=== PATIENT | male | born 1960 | race Caucasian/White ===

== ENCOUNTER 2017-04-30 11:58 | Outpatient (CLI) | payer OTHER ==
--- NOTE | 2017-04-30 14:10 | Ultrasound Report ---
LIMITED PELVIC ULTRASOUND: 04/30/2017 CLINICAL INDICATION: Palpable abnormality left inguinal region. TECHNIQUE: Real-time scanning was performed with workforce services representative static images obtained. FINDINGS: Ultrasound of the palpable abnormality identified by the patient was performed. At this site, subcutaneous edema is noted. No drainable fluid collection or solid mass is seen. There are normal sized inguinal nodes in the region, which do not correlate with the palpable abnormality. IMPRESSION: SUBCUTANEOUS EDEMA IN THE REGION OF THE PALPABLE ABNORMALITY, WITHOUT EVIDENCE OF A DRAINABLE ABSCESS. TD: 04/30/2017 14:08
== END 2017-04-30 11:59 | disposition home or self-care (01) ==
LOC: DI 11:58
PROVIDERS: ATTEND Specialist
DX: R60.0 Localized edema (principal)
CPT/HCPCS: 76857

== ENCOUNTER 2017-05-08 13:03 | Outpatient (CLI) | payer OTHER ==
[2017-05-08 13:28] LABS: CALCIUM 9.7 mg/dL (8.5-10.3); CREATININE 0.9 mg/dL (0.6-1.2)
== END 2017-05-08 13:04 | disposition home or self-care (01) ==
LOC: LAB 13:03
PROVIDERS: ATTEND Family Medicine
DX: R59.0 Localized enlarged lymph nodes (principal)
CPT/HCPCS: 36415; 80048

== ENCOUNTER 2017-05-08 14:58 | Outpatient (CLI) | payer OTHER ==
[2017-05-08] MEDS ORDERED: IOPAMIDOL-300 100 ML VIAL ONE (15:48)
[2017-05-08] MEDS ORDERED: IOPAMIDOL-300 100 ML VIAL IVP ONE (17:04)
--- NOTE | 2017-05-08 20:20 | CT Report ---
EXAM: CT PELVIS EXAM DATE: 05/08/2017 04:05 PM. CLINICAL HISTORY: Left inguinal swelling. COMPARISONS: None. TECHNIQUE: Routine helical CT imaging was performed through the pelvis. IV contrast: ISOVUE 300 100m L. Enteric contrast: No. Reconstructions: Coronal and sagittal. In accordance with CT protocol optimization, one or more of the following dose reduction techniques w ere utilized for this exam: automated exposure control, adjustment of mA and/or KV based on patient s ize, or use of iterative reconstructive technique. FINDINGS: Visualized Abdominal Organs: Normal. Peritoneal Cavity/Bowel: Normal. No free fluid, free air or adenopathy. No masses or acute inflammato ry process. The appendix is well visualized and normal. Pelvic Organs: Normal. The bladder, rectum, and visualized pelvic organs are within normal limits. Vasculature: No aneurysms or other significant abnormality. Bones: No significant abnormality. Other: No inguinal lymphadenopathy, fluid collection, or mass. There may be subtle skin thickening on the left compared to the right as demonstrated on axial image 42. IMPRESSION: Subtle skin thickening on the left. Otherwise negative study. [facility] Referring Provider Line: [phone] SITE ID: [id number]
== END 2017-05-08 14:59 | disposition home or self-care (01) ==
LOC: DI 14:58
PROVIDERS: ATTEND Family Medicine
DX: R19.04 Left lower quadrant abdominal swelling, mass and lump (principal); R59.0 Localized enlarged lymph nodes
CPT/HCPCS: 36415; 72193; 80048; Q9967

== ENCOUNTER 2020-05-11 15:50 | Outpatient (CLI) | payer OTHER ==
--- NOTE | 2020-05-11 17:30 | XRAY Report ---
PROCEDURE: Chest 2 View X-Ray INDICATIONS: PRURITUS TECHNIQUE: 2 view(s) of the chest. COMPARISON: None FINDINGS: Surgical changes and devices: None. Lungs and pleura: No pleural effusions or pneumothorax. Lungs are clear. Mediastinum: Mediastinal contours are normal. Heart size is normal. Bones and chest wall: No suspicious bony abnormalities. Soft tissues appear unremarkable. IMPRESSION: No acute cardiopulmonary disease. Reviewed by: BERKLEY Thurman on 05/11/2020 5:29 PM PST Approved by: Licha Theodore MD on 05/11/2020 5:29 PM PST Station ID: [id number]
== END 2020-05-11 15:51 | disposition home or self-care (01) ==
LOC: DI 15:50
PROVIDERS: ATTEND Physician Assistant
DX: L29.8 Other pruritus (principal); D48.5 Neoplasm of uncertain behavior of skin; S60.042A Contusion of left ring finger without damage to nail, initial encounter
CPT/HCPCS: 36415; 80048; 80076; 82652; 84439; 84443; 84630; 85025; 86038

== ENCOUNTER 2020-05-11 16:01 | Outpatient (CLI) | payer OTHER ==
[2020-05-11 16:37] LABS: BASOPHILS % (AUTO) 0.4 %; EOSINOPHILS # (AUTO) 0.3 10^3/uL (0.0-0.7); EOSINOPHILS % (AUTO) 3.1 %; HCT - HEMATOCRIT 41.8 % (42.0-52.0); HGB - HEMOGLOBIN 14.3 g/dL (14.0-18.0); LYMPHOCYTES # (AUTO) 1.7 10^3/uL (1.5-3.5); LYMPHOCYTES % (AUTO) 16.6 %; MEAN CORPUSCULAR HEMOGLOBIN 30.4 pg (27.0-31.0); MEAN CORPUSCULAR HGB CONC 34.2 g/dL (32.0-36.0); MEAN CORPUSCULAR VOLUME 88.9 fL (80.0-94.0); MEAN PLATELET VOLUME 9.9 fL (7.4-11.4); MONOCYTES # (AUTO) 0.6 10^3/uL (0.0-1.0); MONOCYTES % (AUTO) 5.5 %; NEUTROPHILS # (AUTO) 7.4 10^3/uL (1.5-6.6); PLT - PLATELET COUNT 266 10^3/uL (130-450); RED CELL DISTRIBUTION WIDTH 11.7 % (12.0-15.0)
[2020-05-11 16:55] LABS: ALBUMIN 4.8 g/dL (3.2-5.5); BILIRUBIN,DIRECT 0.1 mg/dL (0.1-0.5); BILIRUBIN,TOTAL 0.4 mg/dL (0.2-1.0); CALCIUM 9.2 mg/dL (8.5-10.3); POTASSIUM 3.6 mmol/L (3.5-5.0); TOTAL PROTEIN 7.7 g/dL (6.7-8.2)
[2020-05-11 17:10] LABS: THYROID STIMULATING HORMONE 1.58 uIU/mL (0.34-5.60)
[2020-05-11 17:13] LABS: FREE T4 (FREE THYROXINE) 0.93 ng/dL (0.58-1.64)
[2020-05-13 10:32] LABS: ANA SCREEN NEGATIVE (NEGATIVE)
== END 2020-05-11 16:02 | disposition home or self-care (01) ==
LOC: LAB 16:01
PROVIDERS: ATTEND Physician Assistant
DX: D48.5 Neoplasm of uncertain behavior of skin (principal); L29.8 Other pruritus; S60.042A Contusion of left ring finger without damage to nail, initial encounter
CPT/HCPCS: 36415; 80048; 80076; 82652; 84439; 84443; 84630; 85025; 86038

== ENCOUNTER 2020-11-04 08:00 | Outpatient (CLI) | payer OTHER ==
[2020-11-04 20:03] LABS: CC,BF RBC 4828000 /mm^3; CC,BF WBC 1389 /mm^3
[2020-11-04 20:20] LABS: BF CLARITY BLOODY; BF COLOR BLOODY; BF SOURCE JOINT; EOSINOPHILS %,BODY FLUID 9 %; LYMPHOCYTES %,BODY FLUID 47 %; MONOCYTES %,BODY FLUID 4 %; NEUTROPHILS %, BF 40 %
== END 2020-11-04 23:59 | disposition home or self-care (01) ==
LOC: LAB.S 08:00
PROVIDERS: ATTEND Physician Assistant Medical
DX: M70.22 Olecranon bursitis, left elbow (principal)
CPT/HCPCS: 87070; 87205; 89051

== ENCOUNTER 2021-10-03 15:55 | Emergency (ER) | payer OTHER ==
[2021-10-03] MEDS ORDERED: TETANUS/DIPHTHERIA/PERTUSSIS 0.5 ML SYRINGE IM ONE (16:13)
[2021-10-03] MEDS ORDERED: oxyCODONE 5 MG TABLET PO STA (16:13)
--- NOTE | 2021-10-03 16:28 | ED Physician Documentation ---
PD HPI HEAD INJURY - Stated complaint Stated Complaint: NOSE AND HEAD INJ - Chief complaint Chief Complaint: Trauma Hd/Nk - History obtained from History obtained from: Patient - History of Present Illness Timing - onset: How many minutes ago (30) - Additional information Additional information: 61-year-old male presents for evaluation of a head injury that occurred approximately 30 minutes prior to arrival. Patient was doing construction around his house when a nail gun fell approximately 30 feet, striking him across the face. Denies use of blood thinners, denies loss of consciousness. Endorses nose pain and swelling over his forehead where the nail gun struck his face. Patient states that he feels somewhat foggy and nauseous, otherwise denies neck pain, blurred vision, other complaints at this time. Review of Systems Ten Systems: 10 systems reviewed and negative Constitutional: denies: Fever, Chills, Myalgias Eyes: denies: Loss of vision, Decreased vision, Photophobia, Discharge, Irritation Ears: denies: Loss of hearing, Ear pain, Drainage/discharge, Tinnitus/ringing, Foreign body Nose: reports: Other (nose pain). denies: Rhinorrhea / runny nose, Congestion, Foreign Body Cardiac: denies: Chest pain / pressure, Palpitations, Calf pain Respiratory: denies: Dyspnea, Cough, Wheezing GI: reports: Nausea. denies: Abdominal Pain, Abdominal Swelling, Vomiting Skin: reports: Other (facial swelling) Musculoskeletal: denies: Neck pain, Back pain, Extremity pain PD PAST MEDICAL HISTORY - Past Medical History Past Medical History: Yes Endocrine/Autoimmune: None Musculoskeletal: None - Past Surgical History Past Surgical History: Yes - Present Medications Home Medications: Ambulatory Orders Medication Instructions Recorded Confirmed Levetiracetam [Keppra] 500 mg 07/21/15 Naproxen 500 mg PO BID PRN #20 tablet 10/03/21 methocarbamoL [Robaxin] 500 mg PO Q6H #20 tablet 10/03/21 - Allergies Allergies/Adverse Reactions: Allergies Allergy/AdvReac Type Severity Reaction Status Date / Time No Known Drug Allergies Allergy Verified 10/03/21 16:08 - Social History Does the pt smoke?: No Smoking Status: Never smoker Does the pt drink ETOH?: Yes Does the pt have substance abuse?: No - Immunizations Immunizations are current?: Yes PD ED PE NORMAL - Vitals Vital signs reviewed: Yes - General General: Alert and oriented X 3, No acute distress, Well developed/nourished - HEENT HEENT: PERRL, EOMI, Ears normal, Pharynx benign, Other (nasal swelling. No septal hematoma, no active bleeding) - Neck Neck: Supple, no meningeal sign, No bony TTP, No JVD - Cardiac Cardiac: No murmur, Strong equal pulses, Other (bradycardia) - Respiratory Respiratory: No respiratory distress, Clear bilaterally - Abdomen Abdomen: Soft, Non tender, Non distended - Back Back: No CVA TTP - Derm Derm: Normal color, Other (contusion R forehead. 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, No motor deficit, No sensory deficit, Normal speech - Psych Psych: Normal mood, Normal affect Results - Vitals Vitals: Oxygen O2 Source Room air Procedures - Laceration (location) Nose Wound type: Curved, Clean Neurovascular status: Sensory intact Anesthesia: LET Wound preparation: Irrigated copiously NS, Limited undermining Skin layer closure: Prolene, Size #-0 - enter number (6), Sutures - enter # (4) Other: Patient tolerated well, No complications, Tetanus booster given PD MEDICAL DECISION MAKING - ED course Complexity details: reviewed results, re-evaluated patient, considered differential, d/w patient ED course: Traumatic injury to face. Patient reports nausea, however is alert and oriented x3. Patient taken quickly to CT scanner. Thankfully there was no traumatic injury seen on CT. Patient did have a small laceration to the tip of his nose, this was repaired per the procedure note. Tetanus shot was updated while in the department. Patient likely does have some component of concussion given his symptoms and the fact that a heavy object fell on his head from great height. Patient and his were given concussion precautions and medications for pain at home. Discharged to the care of his in stable condition Departure - Departure Disposition: 01 Home, Self Care Clinical Impression: Concussion, Contusion, nose Condition: Stable Instructions: ED Head Injury Closed Prescriptions: Naproxen 500 mg PO BID PRN #20 tablet PRN Reason: Pain methocarbamoL [Robaxin] 500 mg PO Q6H #20 tablet Discharge Date/Time: 10/03/21 18:37
[2021-10-03] MEDS ORDERED: LIDOCAINE-EPINEPH-TETRACAINE 3 ML SYRINGE TOP STA (17:10)
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
[2021-10-03] MEDS ORDERED: oxyCODONE/ACET 5/325 Prepack 4 PO STA (18:11)
[2021-10-03 18:17] VITALS: BP 153/89
== END 2021-10-03 18:37 | disposition home or self-care (01) ==
LOC: ED 15:55
DX: S01.21XA Laceration without foreign body of nose, initial encounter (principal); S06.0X0A Concussion without loss of consciousness, initial encounter; W20.1XXA Struck by object due to collapse of building, initial encounter; Y93.H3 Activity, building and construction; Y92.009 Unspecified place in unspecified non-institutional (private) residence as the place of occurrence of the external cause; Y99.8 Other external cause status
CPT/HCPCS: 12013; 70450; 70486; 72125; 90471; 90715; 99282; 99284; A9270

== ENCOUNTER 2022-10-22 16:48 | Outpatient (CLI) | payer OTHER | END 2022-10-22 23:59 | disposition EMS.NT | LOC: EMS 16:48 | DX: Z04.1 Encounter for examination and observation following transport accident (principal) ==